=== PATIENT | male | born 1930 | race Caucasian/White ===

== ENCOUNTER → 2016-05-20 | Outpatient (CLI) | payer MEDICARE | END | disposition home or self-care (01) | LOC: PCVCCLINIC 11:03 | PROVIDERS: ATTEND Internal Medicine | DX: I25.10 Atherosclerotic heart disease of native coronary artery without angina pectoris (principal); E78.00 Pure hypercholesterolemia, unspecified; R42 Dizziness and giddiness; I73.9 Peripheral vascular disease, unspecified; E61.1 Iron deficiency | CPT/HCPCS: 93005; G0463 ==